=== PATIENT | female | born 1965 | race Caucasian/White ===

== ENCOUNTER → 2021-12-08 | Outpatient (CLI) | payer BC, OTHER ==
[~2021-12-08] MED LIST: ALLO100T PO; D31000TA2 PO; FAMO40TA3 PO; KP F1200 PO; OMEP40CA5 PO; RHUB4TAB PO; SYNT112T2 PO; VITMTA PO
== END ==
LOC: M LABSMTC 10:50
PROVIDERS: ATTEND Anesthesiology
DX: Z01.812 Encounter for preprocedural laboratory examination (principal); Z20.822 Contact with and (suspected) exposure to COVID-19

== ENCOUNTER 2021-12-13 10:56 | Day surgery (SDC) | payer BC, OTHER ==
[~2021-12-13] VITALS: Ht 167.6 cm; Wt 92.3 kg
[~2021-12-13 10:56] MED LIST changes: +NS 1,000 ML IV ONE
[2021-12-13] MEDS ORDERED: LIDOCAINE 2% 100MG/5ML SDV (FOR ANES.) As Ordered ONE (11:52)
[2021-12-13] MEDS ORDERED: propofoL 200 MG/20 ML VIAL As Ordered ONE (11:52)
[2021-12-13] MEDS ORDERED: fentaNYL 100 MCG/2 ML INJECTION As Ordered ONE (11:52)
[2021-12-13 13:31] VITALS: BP 183/98
== END 2021-12-13 13:10 | disposition home or self-care (01) ==
LOC: M OPP 10:56
PROVIDERS: ATTEND Internal Medicine Gastroenterology
DX: K21.00 Gastro-esophageal reflux disease with esophagitis, without bleeding (principal); K29.70 Gastritis, unspecified, without bleeding; Z98.84 Bariatric surgery status; R12 Heartburn; Z79.899 Other long term (current) drug therapy; Z91.048 Other nonmedicinal substance allergy status; Z87.891 Personal history of nicotine dependence
CPT/HCPCS: 43239; 88305; J3010

== ENCOUNTER → 2022-06-19 | Outpatient (CLI) | payer BC, OTHER ==
[~2022-06-19] MED LIST changes: -D31000TA2 PO; +DEXL60CA; -NS 1,000 ML IV ONE; +PANT40TA29; +VITA100093 PO; +ZOLP5TAB
== END ==
LOC: M LABSMTC 10:38
PROVIDERS: ATTEND Anesthesiology
DX: Z01.812 Encounter for preprocedural laboratory examination (principal); Z20.822 Contact with and (suspected) exposure to COVID-19

== ENCOUNTER 2022-06-23 09:23 | Day surgery (SDC) | payer BC, OTHER ==
[~2022-06-23] VITALS: Ht 165.1 cm; Wt 89.8 kg
[~2022-06-23 09:23] MED LIST changes: +NS 1,000 ML IV ONE
[2022-06-23] MEDS ORDERED: LIDOCAINE 2% 100MG/5ML SDV (FOR ANES.) As Ordered ONE (10:07)
[2022-06-23] MEDS ORDERED: propofoL 200 MG/20 ML VIAL As Ordered ONE (10:07)
[2022-06-23] MEDS ORDERED: fentaNYL 100 MCG/2 ML INJECTION As Ordered ONE (10:07)
[2022-06-23 11:21] VITALS: BP 167/81
== END 2022-06-23 11:23 | disposition home or self-care (01) ==
LOC: M OPP 09:23
PROVIDERS: ATTEND Internal Medicine Gastroenterology
DX: K22.89 Other specified disease of esophagus (principal); K29.70 Gastritis, unspecified, without bleeding; Z98.84 Bariatric surgery status; K21.00 Gastro-esophageal reflux disease with esophagitis, without bleeding; M10.9 Gout, unspecified; E03.9 Hypothyroidism, unspecified; Z79.818 Long term (current) use of other agents affecting estrogen receptors and estrogen levels; Z79.899 Other long term (current) drug therapy; Z91.048 Other nonmedicinal substance allergy status; Z87.891 Personal history of nicotine dependence
CPT/HCPCS: 43235; J3010

== ENCOUNTER → 2024-01-21 | Outpatient (CLI) | payer BC, OTHER ==
[~2024-01-21] MED LIST changes: -NS 1,000 ML IV ONE
== END ==
LOC: M SLEEP 20:00
PROVIDERS: ATTEND Nurse Practitioner Family
DX: G47.33 Obstructive sleep apnea (adult) (pediatric) (principal)

== ENCOUNTER 2024-12-25 08:56 | Day surgery (SDC) | payer BC ==
[~2024-12-25] VITALS: Ht 167.6 cm; Wt 89.9 kg
[~2024-12-25 08:56] MED LIST changes: -DEXL60CA; +DEXL60CA13; +MULT-90 PO; +TIRZ5PEN3 SC
[2024-12-25] MEDS ORDERED: GLYCOPYRROLATE INJ 0.2 MG/ML 2 ML VIAL As Ordered ONE (10:00)
[2024-12-25] MEDS ORDERED: LIDOCAINE 2% 100MG/5ML SDV (FOR ANES.) As Ordered ONE (10:00)
[2024-12-25] MEDS ORDERED: propofoL 200 MG/20 ML VIAL As Ordered ONE (10:00)
[2024-12-25 10:02] VITALS: TEMP 98.2
[2024-12-25 10:22] VITALS: BP 136/83; O2SAT 97
== END 2024-12-25 10:29 | disposition home or self-care (01) ==
LOC: M OPP 08:56
PROVIDERS: ATTEND Surgery
DX: Z12.11 Encounter for screening for malignant neoplasm of colon (principal); Z91.048 Other nonmedicinal substance allergy status; Z79.85 Long-term (current) use of injectable non-insulin antidiabetic drugs; Z79.899 Other long term (current) drug therapy; G47.30 Sleep apnea, unspecified
CPT/HCPCS: 45378; J1596